=== PATIENT | male | born 1940 | race Caucasian/White ===

== ENCOUNTER 2018-05-12 12:14 | Inpatient (IN) ==
[2018-05-12] MEDS ORDERED: MOM Conc 10 ML UD.LIQ PO PRN (18:10)
[2018-05-12] MEDS: ARIPiprazole 5 MG TABLET PO SCH (21:10)
[2018-05-12] MEDS: Lithium Carbonate 300 MG CAPSULE PO SCH (21:10)
[2018-05-12] MEDS: Venlafaxine XR (24 HR) 75 MG CAP.ER.24H PO SCH (21:10)
--- NOTE | 2018-05-12 22:28 | Internal Med History&Physical ---
Date of Encounter: 05/12/18 Time of Encounter: 21:00 Internal Medicine - H&P: HPI Chief complaint: DIZZY SPELLS; POSSIBLE SYMPTOMATIC BRADYCARDIA Admitted From: Home Plans for Post Hospital Care: Home History of present illness: Mr. Shin is a 77 year old male. This patient was transferred to our hospital from [place] emergency department. He has experienced 3 episodes of dizziness/lightheadedness for the last 2 weeks. The last one happened yesterday; the previous one happened on the day before yesterday. It was a feeling of "like about to pass out". They were not associated with any chest pain, difficulty breathing or diaphoresis. He has never been diagnosed with coronary artery disease. He was found to have heart rate that low 50s in [place]; associated with some hypotension. He has been treated for type 2 diabetes mellitus and hypertension. He had his aortic valve replaced with bioprosthetic valve in 2009. His last echocardiogram done a few months ago showed some deterioration of the bioprosthetic valve. He has not noticed any worsening of her exercise tolerance or exertional chest pain recently. Review of systems: All 14 organ systems were reviewed by me with the patient. Positive and pertinent negative findings are listed above. The rest of organ systems is negative. Past Med Surg Social Fam HX - Past Medical History Medical history: diabetes, GERD, hyperlipidemia, hypertension, valvular heart disease, other Additional medical history: History of sleep apnea and uses CPAP machine Psychiatric history: bipolar, depression - Past Surgical History Surgical History: appendectomy, heart valve replacement - Social History Smoking Status: Never smoker Smokeless Tobacco Status: No Alcohol use: none Drug use: none - Family History Father History Unknown: Yes Adopted: No Living Status: Age at : 62 Cause of : Brain Hx Family GI Disorders: Yes Hx Family Neurologic Disorders: Yes Mother Living Status: Hx Family Cancer: Yes (Cancer, unknown type) Internal Medicine - H&P: Meds Aspirin 81 mg PO DAILY 02/22/16 [History] Folic Acid 1 mg PO DAILY 02/22/16 [History] Primidone [Mysoline] 50 mg PO BIDWM 02/22/16 [History] Venlafaxine XR (24 HR) [Effexor Xr] 75 mg PO BID 02/22/16 [History] Aripiprazole [Abilify] 12.5 mg PO HS 05/11/18 [History] Atorvastatin Calcium [Lipitor] 20 mg PO DAILY 05/11/18 [History] Cholecalciferol (Vitamin D3) [Vitamin D3] 2,000 units PO DAILY 05/11/18 [History ] Empagliflozin [Jardiance] 10 mg PO DAILY 05/11/18 [History] Furosemide [Lasix] 10 mg PO DAILY 05/11/18 [History] GlipiZIDE [Glipizide ER] 20 mg PO DAILY 05/11/18 [History] [place] Carbonate 300 mg PO BID 05/11/18 [History] Pantoprazole Sodium [Protonix] 40 mg PO DAILY 05/11/18 [History] Tamsulosin HCl [Flomax] 0.4 mg PO DAILY 05/11/18 [History] MOM Conc [MILK OF MAGNESIA conc] 30 ml PO DAILY PRN [email or web address] 05/12/18 [Rx] 3 Allergy/AdvReac Type Severity Reaction Status Date / Time No Known Allergies Allergy Verified 05/12/18 18:23 All Systems PM: A 10-system review of systems was performed and is negative for pertinent findings except as documented above in the HPI. - Constitutional Vitals: Temp Pulse Resp BP Pulse Ox 97.8 F 50 16 110/62 97 05/12/18 18:32 05/12/18 18:32 05/12/18 18:32 05/12/18 18:32 05/12/18 18:32 - Other Additional findings: Skin: Free of rash and discoloration. Eyes: Sclera is white. There is no discharge from eyes. ENMT: Oral/pharyngeal mucosa is normal in appearance. There is no discharge from nose or ears. Respiratory: Normal breath sounds with no crackles and wheezes bilaterally. CV: Heart is regular with no gallop or murmur. His heart rate is 46/min. GI: Abdomen is flat and soft with no palpable mass or visceromegaly. : There is no tenderness in patient's flanks bilaterally. There is mild tenderness in suprapubic area. His post voiding residual is about 500 cc. Neuro exam: He has good strength in upper and lower extremities. He has normal eye movements. Psychiatric: He has normal affect. His thought process is appropriate to the situation. - Assessment and plan (1) Bradycardia Current Visit: No Status: Acute Assessment and plan: His heart monitor is showing sinus bradycardia of 46/min. Will consult cardiology. The patient may have symptomatic bradycardia. I cannot see any medications, which can contribute to his slow heart rate. (2) Hypotension (arterial) Current Visit: No Status: Acute Assessment and plan: His blood pressure checked in our hospital on 3 occasions looks pretty decent. We will be watching it closely. We will keep his Lasix on hold. Qualifiers: Hypotension type: unspecified hypotension type Qualified Code(s): I95.9 - Hypotension, unspecified (3) Type 2 diabetes mellitus Current Visit: Yes Status: Acute Assessment and plan: It seems to be under control. Will offer him fingersticks for glucose 4 times a day; without insulin coverage. We will continue his previously used hypoglycemics. 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
[2018-05-13] MEDS: Aspirin 81 MG TAB.CHEW PO SCH (08:01)
[2018-05-13] MEDS: Venlafaxine XR (24 HR) 75 MG CAP.ER.24H PO SCH ×2 (08:01→21:31)
[2018-05-13] MEDS: Folic Acid 1 MG TABLET PO SCH (08:01)
[2018-05-13] MEDS: Cholecalciferol (D-3) 1,000 UNIT TABLET PO SCH (08:01)
[2018-05-13] MEDS: Lithium Carbonate 300 MG CAPSULE PO SCH ×2 (08:02→21:31)
[2018-05-13] MEDS: Furosemide 20 MG TABLET PO SCH (08:02)
[2018-05-13] MEDS: Primidone 50 MG TABLET PO SCH ×2 (08:02→16:49)
[2018-05-13] MEDS ORDERED: PATIENT TAKING PO SCH (09:00)
[2018-05-13] MEDS ORDERED: *HR* GlipiZIDE XL (24 HR) 10 MG TABLET PO SCH (09:00)
--- NOTE | 2018-05-13 09:45 | Cardiology Consult Note ---
Date of Encounter: 05/13/18 Time of Encounter: 08:30 Assessment and Plan (1) Bradycardia Current Visit: No Status: Acute Per cardiology: -SB noted per ECG. -Telemetry reviewed with average HR previous 12 hours noted to be 52, SB. PACs and blocked PACs noted. -Denies dizziness, lightheadedness, syncope, or near syncope. -Of note, does report increased shortness of breath with exertion. -Will check echocardiogram. -Will have RN walk in hallway with pulse ox to see if HR increases with exertion. -Can consider standard stress to evaluate for chronotropic incompetence. -Will continue to monitor. (2) Elevated troponin Current Visit: No Status: Acute Per cardiology: -Troponins 0.05x3. -Denies chest pain. -ECG with SB, HR 57, RBBB, non-specific ST and T wave abnormalities noted, no previous ECGs to review for comparison. -On asa, statin, Not on BB due to hypotension. -Of note, platelets 41. -Of note, reports LHC prior to valve replacement, does not remember being told about any significant blockages. Denies previous PCI. -Will check echocardiogram. -Not a candidate for invasive cardiac intervention due to thrombocytopenia. (3) Thrombocytopenia Current Visit: No Status: Chronic Per cardiology: -Known thrombocytopenia. -Platelets yesterday 41. -12/2017 platelets 69. -Of note, also hemoglobin 11.8 -Management per primary service. (4) History of aortic valve replacement with bioprosthetic valve Current Visit: No Status: Chronic Per cardiology: -Known AV replacement with bioprosthetic AV 2009. -Reports worsening shortness of breath with exertion. -Systolic murmur noted. -Last TTE 2016 ARM with LVEF 55%, mild diastolic dysfunction, mild concentric LVH, dilated RV with normal function, bioprosthetic AV not well visualized. Doppler gradiant 20mmHg may be normal for type of valve, mild MR, no segmental wall motion abnormalities noted. -Will check echocardiogram. Discussion w patient/family: The assessment and plan as outlined above was discussed with the patient who expressed understanding and agreement. All questions were answered. Thank you for involving us in the care of your patient. Please call with any questions. Discussed and reviewed with . History of Present Illness Consult date: 05/12/18 Requesting physician: Lenny Up Consult reason: bradycardia Chief complaint: shortness of breath History of present illness: Mr. Shin is a 77 year old male with a relevant past medical history of bioprosthetic AV replacement 2009, DM, HTN, tremors, sleep apnea, depression, tardive dyskinesia who presented to [facility] with complaints of shortness of breath with exertion for the past 2-3 weeks. Patient denies chest pain. Denies increased fatigue. Patient denies dizziness, lightheadedness, syncope, or near syncope. Patient denies increased edema. Past Med Surg Social Fam HX - Past Medical History Attestation: Yes The following information was validated with the patient. Source: patient, old records reviewed Medical history: diabetes, GERD, hyperlipidemia, hypertension, valvular heart disease, other Additional medical history: History of sleep apnea and uses CPAP machine Psychiatric history: bipolar, depression - Past Surgical History Surgical History: appendectomy, heart valve replacement - Social History Smoking Status: Never smoker Smokeless Tobacco Status: No Alcohol use: none Drug use: none - Family History Father History Unknown: Yes Adopted: No Living Status: Age at : 62 Cause of : Brain Hx Family GI Disorders: Yes Hx Family Neurologic Disorders: Yes Mother Living Status: Hx Family Cancer: Yes (Cancer, unknown type) Medications and Allergies Aspirin 81 mg PO DAILY 02/22/16 [History] Folic Acid 1 mg PO DAILY 02/22/16 [History] Primidone [Mysoline] 50 mg PO BIDWM 02/22/16 [History] Venlafaxine XR (24 HR) [Effexor Xr] 75 mg PO BID 02/22/16 [History] Aripiprazole [Abilify] 12.5 mg PO HS 05/11/18 [History] Atorvastatin Calcium [Lipitor] 20 mg PO DAILY 05/11/18 [History] Cholecalciferol (Vitamin D3) [Vitamin D3] 2,000 units PO DAILY 05/11/18 [History ] Empagliflozin [Jardiance] 10 mg PO DAILY 05/11/18 [History] Furosemide [Lasix] 10 mg PO DAILY 05/11/18 [History] GlipiZIDE [Glipizide ER] 20 mg PO DAILY 05/11/18 [History] [place] Carbonate 300 mg PO BID 05/11/18 [History] Pantoprazole Sodium [Protonix] 40 mg PO DAILY 05/11/18 [History] Tamsulosin HCl [Flomax] 0.4 mg PO DAILY 05/11/18 [History] MOM Conc [MILK OF MAGNESIA conc] 30 ml PO DAILY PRN [email or web address] 05/12/18 [Rx] 3 Allergy/AdvReac Type Severity Reaction Status Date / Time No Known Allergies Allergy Verified 05/12/18 18:23 All Systems Review: The remainder of the systems were reviewed and are negative - Cardiovascular Cardiovascular: as per HPI, dyspnea on exertion Physical Examination Vital Signs, Last 4 Hours Temp Pulse Resp BP Pulse Ox 05/13/18 07:03 97.9 F 61 16 106/60 95 General: Conversant, No Apparent Distress HEENT: Atraumatic, Normocephaly, Mucus Membranes Moist Neck: No JVD, Normal carotid pulses Cardiac: Reg Rate and Rhythm, Normal S1 and S2, Other (Systolic murmur noted. ) Lungs: Normal Breath Sounds, No Wheeze, Rales, Rhonchi Neuro: Alert and responsive, No focal deficits noted Abdomen: Soft, Non-Tender Skin: No rashes noted on visualized skin Musculoskeletal: No Chest Wall Tenderness Extremities: No Clubbing, No Cyanosis, No Edema, Normal Pulses Results Active Medications Aripiprazole (Abilify) 12.5 mg PO HS [facility] Stop: 11/11/18 21:01 Last Admin: 05/12/18 21:10 Dose: 12.5 mg Aspirin (Aspirin) 81 mg PO DAILY ZEE Stop: 11/12/18 09:01 Last Admin: 05/13/18 08:01 Dose: 81 mg Atorvastatin Calcium (Lipitor) 20 mg PO DAILY ZEE Stop: 11/12/18 09:01 Last Admin: 05/13/18 08:01 Dose: 20 mg Folic Acid (Folic Acid) 1 mg PO DAILY ZEE Stop: 11/12/18 09:01 Last Admin: 05/13/18 08:01 Dose: 1 mg Furosemide (Lasix) 10 mg PO DAILY ZEE Stop: 11/12/18 09:01 Last Admin: 05/13/18 08:02 Dose: 10 mg Glipizide (Glucotrol Xl) 20 mg PO DAILY ZEE Stop: 11/12/18 09:01 Last Admin: 05/13/18 08:08 Dose: 20 mg [place] Carbonate ([place] Carbonate) 300 mg PO BID ZEE PRN Reason: Protocol Stop: 11/11/18 21:01 Last Admin: 05/13/18 08:02 Dose: 300 mg Magnesium Hydroxide (Milk Of Magnesia Conc) 30 ml PO DAILY PRN PRN Reason: Constipation Stop: 11/11/18 18:11 Omeprazole (Prilosec) 20 mg PO DAILY ZEE Stop: 11/12/18 09:01 Last Admin: 05/13/18 08:02 Dose: 20 mg Pharmacy Profile Note (Patient Taking Own Medication) 10 each PO DAILY ZEE Stop: 11/12/18 09:01 Last Admin: 05/13/18 08:04 Dose: Not Given Primidone (Mysoline) 50 mg PO BIDWM ZEE Stop: 11/12/18 08:01 Last Admin: 05/13/18 08:02 Dose: 50 mg Tamsulosin HCl (Flomax) 0.4 mg PO DAILY ZEE PRN Reason: Protocol Stop: 11/12/18 09:01 Last Admin: 05/13/18 08:01 Dose: 0.4 mg Venlafaxine HCl (Effexor Xr) 75 mg PO BID ZEE PRN Reason: Protocol Stop: 11/11/18 21:01 Last Admin: 05/13/18 08:01 Dose: 75 mg Vitamin D (Vitamin D) 2,000 unit PO DAILY ZEE Stop: 11/12/18 09:01 Last Admin: 05/13/18 08:01 Dose: 2,000 unit Laboratory Tests 12/29/17 12/29/17 01/02/18 07:15 07:15 08:15 Hgb Plt Count 67 L 69 L Potassium Creatinine Troponin I B-Natriuretic Peptide TSH 1.614 05/11/18 05/11/18 05/11/18 15:20 17:30 17:30 Hgb Plt Count 50 L Potassium Creatinine Troponin I 0.05 H* B-Natriuretic Peptide 169 H TSH 05/11/18 05/12/18 05/12/18 21:15 02:50 02:50 Hgb 11.8 L Plt Count 41 L Potassium Creatinine Troponin I 0.05 H* 0.05 H* B-Natriuretic Peptide TSH 05/12/18 02:50 Hgb Plt Count Potassium 3.8 Creatinine 0.93 Troponin I B-Natriuretic Peptide TSH - Imaging and Cardiology Chest Xray: report reviewed Echo: pending, report reviewed - EKG Interpretation EKG results cardiology: personally reviewed (ECG with SB, HR 57, RBBB, non- specific ST and T wave abnormalities noted.) Consult Discharge Plan - Plan Referrals: Drake Barba MD [Primary Care Provider] -
[2018-05-13] MEDS ORDERED: D5% in Water 1,000 ML IVC PRN (12:39)
[2018-05-13] MEDS ORDERED: *HR* Dextrose 50 % in Water (Syg) 50 ML SYRINGE IVP PRN (12:39)
[2018-05-13] MEDS ORDERED: Dextrose Gel 15 GM/37.5 ML TUBE PO PRN ×2 (12:39)
[2018-05-13] MEDS: Insulin LISPRO 300 UNITS/3 ML VIAL SQ SCH (17:05)
--- NOTE | 2018-05-13 18:44 | Internal Med Progress Note ---
Hospitalist Progress Note - Encounter Date of Encounter: 05/13/18 Time of Encounter: 11:00 - Subjective Interval History: Patient was seen and examined at bedside. Currently he is chest pain free and denies any shortness of breath. Ambulated in the hallway per nursing staff tolerated well with no chest pain or shortness of breath. - Exam Vitals: Temp Pulse Resp BP Pulse Ox 98.4 F 62 14 133/69 96 05/13/18 18:34 05/13/18 18:34 05/13/18 18:34 05/13/18 18:34 05/13/18 18:34 Exam: Skin: Free of rash and discoloration. Eyes: Sclera is white. There is no discharge from eyes. ENMT: Oral/pharyngeal mucosa is normal in appearance. There is no discharge from nose or ears. Respiratory: Normal breath sounds with no crackles and wheezes bilaterally. CV: Heart is regular with no gallop systolic murmur noted. Regular rate and rhythm GI: Abdomen is flat and soft with no palpable mass or visceromegaly. : There is no tenderness in patient's flanks bilaterally. Neuro exam: He has good strength in upper and lower extremities. He has normal eye movements. Psychiatric: He has normal affect. His thought process is appropriate to the situation. - Assessment and Plan (1) Bradycardia Current Visit: No Status: Acute Assessment and Plan: Sinus bradycardia on EKG no chest pain syncope dizziness or lightheadedness. Echocardiogram ordered Cardiology consulted appreciate recommendations Continuous cardiac monitoring Fall precautions (2) Type 2 diabetes mellitus Current Visit: Yes Status: Acute Assessment and Plan: Accu-Cheks before meals at bedtime with sliding scale insulin Hold oral medications for now (3) Elevated troponin Current Visit: No Status: Acute Assessment and Plan: Troponin 0.053 no chest pain EKG shows sinus bradycardia no ST-T wave abnormalities On aspirin and statin Echocardiogram ordered Cardiology consulted (4) History of aortic valve replacement with bioprosthetic valve Current Visit: No Status: Chronic Assessment and Plan: History AV replacement with bioprosthetic AV 2009-has been experiencing increasing shortness of breath with exertion Systolic murmur noted Echo has been ordered Cardiology consulted appreciate recommendations (5) Thrombocytopenia Current Visit: No Status: Chronic Assessment and Plan: This appears to be chronic we will continue to monitor Monitor for any bleeding DVT Prophylaxis: SCDs due to thrombocytopenia - Time Spent with Patient Total time spent is greater than 50% in coordination of care (as documented) at patient's floor/unit and/or counseling patient: Internal Medicine: Result - Impressions Impressions Echocardiogram 05/13/18 08:26 Impressions: LVEF 60%. Moderate concentric left ventricular hypertrophy. Mild left ventricular diastolic dysfunction. Normal right ventricular structure and function. Bi-atrial enlargement. Mild mitral regurgitation. Prosthetic aortic valve not well visualized. Increased Doppler gradients suggest the presence of abnormal valvular function (PV 3.8m/s, MG 29 mmHg, DVI 0.33, AT >100 ms). Mild central aortic regurgitation. Unable to estimate RVSP due to suboptimal TR signal. Left Ventricular Wall Motion: Rest Echo Findings All wall segments showed normal motion. Findings: Study Quality * Technically adequate exam. ECG Findings * Sinus rhythm with BBB. Left Ventricle * LVEF 60%. * Moderate concentric left ventricular hypertrophy. * Mild left ventricular diastolic dysfunction. Right Ventricle * Normal right ventricular structure and function. Left Atrium * Severely dilated left atrium. Right Atrium * Mildly dilated right atrium. Mitral Valve * Normal mitral valve structure. * No mitral stenosis. * Mild mitral regurgitation. Aortic Valve * Prosthetic aortic valve not well visualized. * Mild central aortic regurgitation. * Increased Doppler gradients. Tricuspid Valve * Tricuspid valve not well visualized. * Trace tricuspid regurgitation. Pulmonic Valve * Pulmonic valve is not well visualized. * No pulmonic stenosis. * Trace pulmonic regurgitation. Pulmonary Artery * Pulmonary artery not well visualized. Aorta * Not well visualized. Pericardium * There is no pericardial effusion present. Interatrial Septum * No evidence of PFO by color Doppler. IVC * The IVC is not dilated. Consult Discharge Plan - Plan Referrals: Drake Barba MD [Primary Care Provider] - 05/18/18 3:00 pm (2) Type 2 diabetes mellitus Qualifiers: Diabetes mellitus fpc insulin use: without radar mechanic use Diabetes mellitus complication status: without complication Qualified Code(s): E11.9 - Type 2 diabetes mellitus without complications
[2018-05-13] MEDS ORDERED: Insulin LISPRO 300 UNITS/3 ML VIAL SQ SCH (21:00)
[2018-05-13] MEDS: ARIPiprazole 5 MG TABLET PO SCH (21:31)
[2018-05-14 06:31] LABS: Basophils % 0.3 %; Eosinophils # 0.2 K/mcL (0.0-0.6); Eosinophils % 2.6 %; Hematocrit 35.3 % (37.5-50.1); Hemoglobin 11.9 g/dL (12.9-16.9); Immature Granulocytes % 0.2 % (0-4); Lymphocytes # 2.3 K/mcL (0.6-4.6); Lymphocytes % 39.7 %; Mean Corpuscular HGB Conc 33.7 g/dL (31.6-35.5); Mean Corpuscular Hemoglobin 32.7 pg (28.0-33.3); Mean Platelet Volume 12.2 fL (9.4-12.4); Monocytes # 0.4 K/mcL (0.0-1.3); Neutrophils # 2.9 K/mcL (1.6-8.9); Red Blood Count 3.64 M/mcL (4.19-5.50); Red Cell Distribution Width 13.3 % (11.5-14.5); Segmented Neutrophils % 50.2 %
[2018-05-14 06:32] LABS: Platelet Count 45 K/mcL (140-400)
[2018-05-14 06:52] LABS: Blood Urea Nitrogen 14 mg/dL (8-23); Carbon Dioxide 25 mEq/L (23-29); Chloride 104 mEq/L (98-107); Potassium 3.6 mEq/L (3.5-5.1); Sodium 135 mEq/L (136-145)
[2018-05-14 06:53] LABS: BUN/Creatinine Ratio 18 (6-26); Glucose 164 mg/dL (70-105); Osmolality,Calculated 284 (280-300); eGFR For Non-African Americans > 60 (> 60)
[2018-05-14] MEDS: Venlafaxine XR (24 HR) 75 MG CAP.ER.24H PO SCH (08:45)
[2018-05-14] MEDS: Folic Acid 1 MG TABLET PO SCH (08:45)
[2018-05-14] MEDS: Furosemide 20 MG TABLET PO SCH (08:45)
[2018-05-14] MEDS: Cholecalciferol (D-3) 1,000 UNIT TABLET PO SCH (08:45)
[2018-05-14] MEDS: Lithium Carbonate 300 MG CAPSULE PO SCH (08:45)
[2018-05-14] MEDS: Primidone 50 MG TABLET PO SCH (08:45)
[2018-05-14] MEDS: Aspirin 81 MG TAB.CHEW PO SCH (08:45)
[2018-05-14] MEDS: Insulin LISPRO 300 UNITS/3 ML VIAL SQ SCH ×2 (08:48→12:25)
--- NOTE | 2018-05-14 10:23 | Cardiology Progress Note ---
Date of Encounter: 05/14/18 Time of Encounter: 08:30 Assessment and Plan (1) Bradycardia Current Visit: No Status: Acute Per cardiology: -SB noted per ECG. -Telemetry reviewed with average HR previous 12 hours noted to be 54, SB. PACs and PVCs noted. -Denies dizziness, lightheadedness, syncope, or near syncope. -Of note, reported increased shortness of breath with exertion. -Was walked yesterday with RN and HR increased to 70-80s with walking. Denies shortness of breath with working. -HR stable. Asymptomatic. Avoid AV jany blockers. -Cardiology will sign off and will follow in outpatient setting. Follow up set. (2) Elevated troponin Current Visit: No Status: Acute Per cardiology: -Troponins 0.05x3. -Denies chest pain. -ECG with SB, HR 57, RBBB, non-specific ST and T wave abnormalities noted, no previous ECGs to review for comparison. -On asa, statin, Not on BB due to bradycardia. -Of note, platelets 41. -Of note, reports LHC prior to valve replacement, does not remember being told about any significant blockages. Denies previous PCI. -TTE with LVEF preserved, no segmental wall motion abnormalities noted. -Not a candidate for invasive cardiac intervention due to thrombocytopenia. Cardiac rehab consult not appropriate. (3) Thrombocytopenia Current Visit: No Status: Chronic Per cardiology: -Known thrombocytopenia. -Platelets yesterday 41. -12/2017 platelets 69. -Of note, also hemoglobin 11.8 -Management per primary service. (4) History of aortic valve replacement with bioprosthetic valve Current Visit: No Status: Chronic Per cardiology: -Known AV replacement with bioprosthetic AV 2009. -Reports worsening shortness of breath with exertion. -Systolic murmur noted. -Last TTE 2016 ARM with LVEF 55%, mild diastolic dysfunction, mild concentric LVH, dilated RV with normal function, bioprosthetic AV not well visualized. Doppler gradiant 20mmHg may be normal for type of valve, mild MR, no segmental wall motion abnormalities noted. -TTE this admission with LVEF 60%, moderate concentric LVH, mild diastolic dysfunction, bi-atrial enlargement, mild MR, bioprosthetic AV not well visualized- abnormal valve function noted, mild AR, no segmental wall motion abnormalities noted. -Discussed and reviewed with and , will continue to monitor valve function in outpatient setting. FOllow up set. Discussion w patient/family: The assessment and plan as outlined above was discussed with the patient who expressed understanding and agreement. All questions were answered. Thank you for involving us in the care of your patient. Please call with any questions. Discussed and reviewed with Dr.John Lund Subjective Principal diagnosis: shortness of breath Interval history: Patient reports he is feeling well today. Denies chest pain. Denies shortness of breath today. Denies dizziness, lightheadedness. Objective Vital Signs, Last 4 Hours Temp Pulse Resp BP Pulse Ox 05/14/18 07:04 98 F 50 18 121/71 97 General: Conversant, No Apparent Distress HEENT: Atraumatic, Normocephaly, Mucus Membranes Moist Neck: No JVD, Normal carotid pulses Cardiac: Reg Rate and Rhythm, Normal S1 and S2, Other (Systolic murmur noted. ) Lungs: Normal Breath Sounds, No Wheeze, Rales, Rhonchi Neuro: Alert and responsive, No focal deficits noted Abdomen: Soft, Non-Tender Skin: No rashes noted on visualized skin Musculoskeletal: No Chest Wall Tenderness Extremities: No Clubbing, No Cyanosis, No Edema, Normal Pulses Results 05/14/18 05:24 05/14/18 05:24 Lab Results Impressions Echocardiogram 05/13/18 08:26 Impressions: LVEF 60%. Moderate concentric left ventricular hypertrophy. Mild left ventricular diastolic dysfunction. Normal right ventricular structure and function. Bi-atrial enlargement. Mild mitral regurgitation. Prosthetic aortic valve not well visualized. Increased Doppler gradients suggest the presence of abnormal valvular function (PV 3.8m/s, MG 29 mmHg, DVI 0.33, AT >100 ms). Mild central aortic regurgitation. Unable to estimate RVSP due to suboptimal TR signal. Left Ventricular Wall Motion: Rest Echo Findings All wall segments showed normal motion. Findings: Study Quality * Technically adequate exam. ECG Findings * Sinus rhythm with BBB. Left Ventricle * LVEF 60%. * Moderate concentric left ventricular hypertrophy. * Mild left ventricular diastolic dysfunction. Right Ventricle * Normal right ventricular structure and function. Left Atrium * Severely dilated left atrium. Right Atrium * Mildly dilated right atrium. Mitral Valve * Normal mitral valve structure. * No mitral stenosis. * Mild mitral regurgitation. Aortic Valve * Prosthetic aortic valve not well visualized. * Mild central aortic regurgitation. * Increased Doppler gradients. Tricuspid Valve * Tricuspid valve not well visualized. * Trace tricuspid regurgitation. Pulmonic Valve * Pulmonic valve is not well visualized. * No pulmonic stenosis. * Trace pulmonic regurgitation. Pulmonary Artery * Pulmonary artery not well visualized. Aorta * Not well visualized. Pericardium * There is no pericardial effusion present. Interatrial Septum * No evidence of PFO by color Doppler. IVC * The IVC is not dilated. Active Medications Aripiprazole (Abilify) 12.5 mg PO HS [facility] Stop: 11/11/18 21:01 Last Admin: 05/13/18 21:31 Dose: 12.5 mg Aspirin (Aspirin) 81 mg PO DAILY [facility] Stop: 11/12/18 09:01 Last Admin: 05/14/18 08:45 Dose: 81 mg Atorvastatin Calcium (Lipitor) 20 mg PO DAILY [facility] Stop: 11/12/18 09:01 Last Admin: 05/14/18 08:45 Dose: 20 mg Dextrose/Water (Dextrose 50% (Syg)) 25 ml IVP AD PRN PRN Reason: Hypoglycemia Stop: 11/12/18 12:40 Folic Acid (Folic Acid) 1 mg PO DAILY [facility] Stop: 11/12/18 09:01 Last Admin: 05/14/18 08:45 Dose: 1 mg Furosemide (Lasix) 10 mg PO DAILY [facility] Stop: 11/12/18 09:01 Last Admin: 05/14/18 08:45 Dose: 10 mg Glucagon (Glucagen) 1 mg IM ONCE PRN PRN Reason: Hypoglycemia Stop: 11/12/18 12:40 Glucose (Gluctose) 15 gm PO ONCE PRN PRN Reason: Hypoglycemia Stop: 11/12/18 12:40 Glucose (Gluctose) 30 gm PO ONCE PRN PRN Reason: Hypoglycemia Stop: 11/12/18 12:40 Dextrose (Dextrose 5%) 1,000 mls @ 100 mls/hr IVC .Q10H PRN PRN Reason: HYPOGLYCEMIA Stop: 11/12/18 12:40 Insulin Human Lispro (Humalog) 0 units SQ HS [facility] PRN Reason: Protocol Stop: 11/12/18 21:01 Last Admin: 05/13/18 21:31 Dose: 2 unit Insulin Human Lispro (Humalog) 0 units SQ TIDAC [facility] PRN Reason: Protocol Stop: 11/12/18 16:31 Last Admin: 05/14/18 08:48 Dose: 2 unit [place] Carbonate ([place] Carbonate) 300 mg PO BID [facility] PRN Reason: Protocol Stop: 11/11/18 21:01 Last Admin: 05/14/18 08:45 Dose: 300 mg Magnesium Hydroxide (Milk Of Magnesia Conc) 30 ml PO DAILY PRN PRN Reason: Constipation Stop: 11/11/18 18:11 Omeprazole (Prilosec) 20 mg PO DAILY [facility] Stop: 11/12/18 09:01 Last Admin: 05/14/18 08:45 Dose: 20 mg Primidone (Mysoline) 50 mg PO BIDWM [facility] Stop: 11/12/18 08:01 Last Admin: 05/14/18 08:45 Dose: 50 mg Tamsulosin HCl (Flomax) 0.4 mg PO DAILY [facility] PRN Reason: Protocol Stop: 11/12/18 09:01 Last Admin: 05/14/18 08:45 Dose: 0.4 mg Venlafaxine HCl (Effexor Xr) 75 mg PO BID [facility] PRN Reason: Protocol Stop: 11/11/18 21:01 Last Admin: 05/14/18 08:45 Dose: 75 mg Vitamin D (Vitamin D) 2,000 unit PO DAILY [facility] Stop: 11/12/18 09:01 Last Admin: 05/14/18 08:45 Dose: 2,000 unit Laboratory Tests 05/14/18 05/14/18 05:24 05:24 Hgb 11.9 L Plt Count 45 L Creatinine 0.80 - Imaging and Cardiology Chest Xray: report reviewed Echo: report reviewed - EKG Interpretation EKG results cardiology: other (Telemetry reviewed with average HR previous 12 hours noted to be 54, SB. PVCs and PACs noted.) - VTE Documentation of Mechanical Device: Intermittent pneumatic compression device Consult Discharge Plan - Plan Referrals: Drake Barba MD [Primary Care Provider] - 05/18/18 3:00 pm
[2018-05-14 11:40] VITALS: BP 94/50
--- NOTE | 2018-05-14 14:08 | Discharge Summary ---
- NOTES TO OUTPATIENT PROVIDER Notes to Outpatient Provider: Patient presented with bradycardia seen by cardiology will follow-up as outpatient-continue to monitor bowel function and outpatient setting. Has history of chronic thrombocytopenia patient will follow -up with Kelsey ruiz Date of Encounter: 05/14/18 Time of Encounter: 14:02 - Discharge Diagnosis (1) Bradycardia Priority: Primary Status: Acute (2) Type 2 diabetes mellitus Priority: Secondary Status: Acute Qualifiers: Diabetes mellitus termite control service representative insulin use: without termite control service representative use Diabetes mellitus complication status: without complication Qualified Code(s): E11.9 - Type 2 diabetes mellitus without complications (3) Elevated troponin Priority: Secondary Status: Acute (4) History of aortic valve replacement with bioprosthetic valve Priority: Secondary Status: Chronic (5) Thrombocytopenia Priority: Secondary Status: Chronic Hospital course: Mr. Shin is a 77 year old male past medical history of bioprosthetic AV replacement 2010 diabetes hypertension tremors sleep apnea tardive dyskinesia originally presented to [facility] ER with complaints of shortness of breath on exertion for the past 2-3 weeks. He denies any chest pain or fatigue dizziness or lightheadedness syncope or near syncope. He was noted to have a decreased heart rate in the 40s sinus. He is not on any beta blockers at this time. Seen by cardiology he is asymptomatic bradycardia advising to avoid jany blockers. Echo was completed with EF of 60% moderate concentric LVH mild diastolic dysfunction biatrial enlargement mild MR 5% AV not well visualized abnormal bowel function noted mild AR no segmental wall motion abnormalities noted. Cardiology recommending monitoring AV valve in outpatient settings. Also advising to avoid AV jany blockers. Patient did have some thrombocytopenia as well as hemoglobin was 11.8. Patient states that this is chronic and that he follows with Dr Christ ruiz in [place] however has not seen in 1 1/2 year and he has not been established with a new hematology. We will set up appointment with hematology as outpatient. We will have patient follow-up with primary care provider and monitor CBC as outpatient. Patient verbalized understanding of follow-up directions. He is hemodynamically stable at this time and is ready for discharge. - Time Spent with Patient Total time spent providing and/or coordinating discharge services: - Discharge Medications Home Medications: Aspirin 81 mg PO DAILY 02/22/16 [History] Folic Acid 1 mg PO DAILY 02/22/16 [History] Primidone [Mysoline] 50 mg PO BIDWM 02/22/16 [History] Venlafaxine XR (24 HR) [Effexor Xr] 75 mg PO BID 02/22/16 [History] Aripiprazole [Abilify] 12.5 mg PO HS 05/11/18 [History] Atorvastatin Calcium [Lipitor] 20 mg PO DAILY 05/11/18 [History] Cholecalciferol (Vitamin D3) [Vitamin D3] 2,000 units PO DAILY 05/11/18 [History ] Empagliflozin [Jardiance] 10 mg PO DAILY 05/11/18 [History] Furosemide [Lasix] 10 mg PO DAILY 05/11/18 [History] GlipiZIDE [Glipizide ER] 20 mg PO DAILY 05/11/18 [History] [place] Carbonate 300 mg PO BID 05/11/18 [History] Pantoprazole Sodium [Protonix] 40 mg PO DAILY 05/11/18 [History] Tamsulosin HCl [Flomax] 0.4 mg PO DAILY 05/11/18 [History] MOM Conc [MILK OF MAGNESIA conc] 30 ml PO DAILY PRN ud.[id number] 05/12/18 [Rx] Allergies/Adverse Reactions: 3 Allergy/AdvReac Type Severity Reaction Status Date / Time No Known Allergies Allergy Verified 05/12/18 18:23 Date of admission: 05/13/18 20:27 Primary care physician: Drake Barba MD Consults: 05/12/18 16:58 Consult to Cardiology [CONS] Routine Comment: Consulting Provider: Cardiology [place] Reason for Consult: SPELLS OF DIZZINESS, LIKELY DUE TO SIGNIFICANT SINUS BRADYCARDIA Time Notified: 16:50 Call Completed: Yes Discharging clinician: Estela Soto Anticipated date of discharge: 05/14/18 - Constitutional Vitals: Temp Pulse Resp BP Pulse Ox 98 F 53 16 94/50 93 05/14/18 11:34 05/14/18 11:34 05/14/18 11:34 05/14/18 11:34 05/14/18 11:34 General appearance: Present: A&O X 3 - Head Head exam: Present: atraumatic, normocephalic - Eye Eye exam: Present: PERRL, conjuntiva pink, sclera anicteric - Neck Neck exam general surgery: Present: supple, trachea midline. Absent: lymphadenopathy - Respiratory Respiratory exam: Present: CTAB. Absent: accessory muscle use, rales, rhonchi, wheezes - Cardiovascular Cardiovascular exam: Present: RRR, +S1, +S2. Absent: diastolic murmur, gallop, rubs, systolic murmur - GI/Abdominal GI/Abdominal exam: Present: normal bowel sounds, soft, no peritoneal signs. Absent: distended, tenderness - Extremities Exam Extremities exam: Present: warm, radial pulses palpable and symmetrical. Absent : calf tenderness, cyanotic, pedal edema - Neurological Exam Neurological exam: Present: CN II-XII intact, oriented X3, no focal deficits. Absent: pronater drift, facial droop, speech deficit - Skin Skin exam: Present: dry, intact - Patient Status Disposition: Home, Self-Care Condition: Good Functional capacity at discharge: independent ambulation Overall status at discharge: patient is back to baseline - Discharge Instructions Follow Up With: Haritha Pham CNP [Partnered Physician] - (Your appointment has been requested. Our offices will call you with a follow up appointment time and date. ) Drake Barba MD [Primary Care Provider] - 05/18/18 3:00 pm - Diet and Activity Activity: increase activity as tolerated Diet: advance to your usual diet - VTE Documentation of Mechanical Device: Intermittent pneumatic compression device
== END 2018-05-14 16:25 | disposition home or self-care (01) | DRG 309 ==
LOC: 3BNU → SUATTDRO 13:46
PROVIDERS: ADMIT Hospitalist; ATTEND Internal Medicine

== ENCOUNTER 2020-09-03 22:32 | Inpatient (IN) ==
[2020-09-04] MEDS ORDERED: Ondansetron ODT 4 MG TAB.RAPDIS SL PRN (01:22)
[2020-09-04] MEDS ORDERED: Acetaminophen 325 MG TABLET PO PRN (01:22)
[2020-09-04] MEDS ORDERED: Naloxone 0.4 MG/ML INJ IVP PRN (01:22)
[2020-09-04] MEDS ORDERED: D5% in Water 1,000 ML IVC PRN (02:49)
[2020-09-04] MEDS ORDERED: *HR* Dextrose 50 % in Water (Vial) 50 ML VIAL IVP PRN (02:49)
[2020-09-04] MEDS ORDERED: Dextrose Gel 15 GM/37.5 ML TUBE PO PRN ×2 (02:49)
[2020-09-04] MEDS: Insulin LISPRO 300 UNITS/3 ML VIAL SQ SCH ×4 (03:14→16:07)
[2020-09-04 08:13] LABS: ABG Base Excess 0 mEq/L (-2 to 3); ABG HCO3 24 mEq/L (21-27); ABG Oxygen Saturation 98 % (95-98); ABG PCO2 35 mmHg (35-45); ABG PH 7.45 pH Units (7.32-7.45); ABG PO2 95 mmHg (85-104); ABG TCO2 25 mEq/L (20-26)
[2020-09-04 08:28] LABS: Hematocrit 41.6 % (37.5-50.1); Hemoglobin 13.3 g/dL (12.9-16.9); Mean Corpuscular Hemoglobin 33.8 pg (28.0-33.3); Mean Corpuscular Volume 105.6 fL (83.0-100.0); Mean Platelet Volume 10.9 fL (9.4-12.4); Platelet Count 133 K/mcL (140-400); Red Blood Count 3.94 M/mcL (4.19-5.50); Red Cell Distribution Width 12.6 % (11.5-14.5); White Blood Count 6.8 K/mcL (4.3-11.1)
[2020-09-04 08:45] LABS: Magnesium 1.9 mg/dL (1.6-2.6)
[2020-09-04 08:48] LABS: Alanine Aminotransferase 26 Units/L (7-52); Albumin 3.4 g/dL (3.5-5.7); Albumin/Globulin Ratio 0.9 (1.1-2.2); Alkaline Phosphatase 50 Units/L (34-104); Aspartate Amino Transferase 14 Units/L (13-39); BUN/Creatinine Ratio 27 (6-26); Bilirubin,Total 0.7 mg/dL (0.3-1.0); Blood Urea Nitrogen 24 mg/dL (8-23); C-Reactive Protein 15 mg/L (Less than 10); Carbon Dioxide 26 mEq/L (23-29); Chloride 109 mEq/L (98-107); Globulin 3.9 g/dL (2.4-3.5); Glucose 215 mg/dL (70-105); Osmolality,Calculated 313 (280-300); Potassium 4.1 mEq/L (3.5-5.1); Sodium 146 mEq/L (136-145); Total Protein 7.3 g/dL (6.4-8.9); eGFR For African Americans > 60 (> 60); eGFR For Non-African Americans > 60 (> 60)
[2020-09-04 08:50] LABS: INR 1.5; Prothrombin Time 17.1 Seconds (9.4-12.1)
[2020-09-04] MEDS ORDERED: Azithromycin 500 MG in 0.9 % Sodium Chloride 250 ML IVPB SCH (09:00)
[2020-09-04 09:06] LABS: Ferritin 282 ng/mL (20-250)
[2020-09-04] MEDS: Dexamethasone 4 MG/ML VIAL IVP SCH (10:01)
[2020-09-04] MEDS ORDERED: Isovue-370 500 ML BOTTLE IVP ONE (10:07)
[2020-09-04] MEDS ORDERED: *HR* Heparin 5,000 UNIT/ML VIAL IVP PRN ×2 (12:47)
[2020-09-04] MEDS ORDERED: *HR* Heparin 5,000 UNIT/ML VIAL IVP ONE (12:47)
[2020-09-04] MEDS ORDERED: Haloperidol Lactate 5 MG/ML VIAL IVP ONE (14:25)
[2020-09-04] MEDS ORDERED: cefTRIAXone 1,000 MG in 0.9 % Sodium Chloride Mini Bag 100 ML IVP SCH (16:00)
[2020-09-04] MEDS: Carbidopa/Levodopa 25/100 TABLET PO SCH ×2 (16:05→20:02)
[2020-09-04 17:09] LABS: INR 1.5; Prothrombin Time 17.1 Seconds (9.4-12.1)
[2020-09-04 17:12] LABS: Heparin anti-factor XA UFH < 0.04 IU/mL (0.30-0.70)
[2020-09-04] MEDS: cefTRIAXone 1,000 MG in Water for inj. (sterile) 10 ML IVP SCH (17:18)
[2020-09-04] MEDS: Doxycycline 100 MG in 0.9 % Sodium Chloride Mini Bag 100 ML IVPB SCH (18:23)
[2020-09-04] MEDS: ARIPiprazole 5 MG TABLET PO SCH (20:01)
[2020-09-04] MEDS: Lithium Carbonate 300 MG CAPSULE PO SCH (20:02)
[2020-09-04] MEDS: Venlafaxine XR (24 HR) 75 MG CAP.ER.24H PO SCH (20:02)
[2020-09-04] MEDS: Heparin 25,000UNIT/250ML 1/2NS 25,000 UNIT/250 ML IV.SOLN IVC SCH (21:35)
[2020-09-05 01:07] LABS: Hematocrit 40.4 % (37.5-50.1); Hemoglobin 12.9 g/dL (12.9-16.9); Mean Corpuscular HGB Conc 31.9 g/dL (31.6-35.5); Mean Corpuscular Hemoglobin 33.9 pg (28.0-33.3); Mean Platelet Volume 11.1 fL (9.4-12.4); Platelet Count 146 K/mcL (140-400); Red Blood Count 3.81 M/mcL (4.19-5.50); Red Cell Distribution Width 12.6 % (11.5-14.5); White Blood Count 8.4 K/mcL (4.3-11.1)
[2020-09-05 01:24] LABS: Alanine Aminotransferase 5 Units/L (7-52); Albumin 3.4 g/dL (3.5-5.7); Albumin/Globulin Ratio 0.9 (1.1-2.2); Alkaline Phosphatase 56 Units/L (34-104); Aspartate Amino Transferase 31 Units/L (13-39); BUN/Creatinine Ratio 28 (6-26); Bilirubin,Total 0.6 mg/dL (0.3-1.0); Blood Urea Nitrogen 26 mg/dL (8-23); Calcium 8.7 mg/dL (8.6-10.3); Carbon Dioxide 26 mEq/L (23-29); Chloride 104 mEq/L (98-107); Globulin 3.8 g/dL (2.4-3.5); Glucose 217 mg/dL (70-105); Osmolality,Calculated 301 (280-300); Potassium 3.9 mEq/L (3.5-5.1); Sodium 140 mEq/L (136-145); Total Protein 7.2 g/dL (6.4-8.9); eGFR For African Americans > 60 (> 60); eGFR For Non-African Americans > 60 (> 60)
[2020-09-05] MEDS: Furosemide 20 MG/2 ML VIAL IVP SCH ×2 (05:57→08:52)
[2020-09-05] MEDS: Cholecalciferol (D-3) 1,000 UNIT (25MCG) TABLET PO SCH (08:32)
[2020-09-05] MEDS: Venlafaxine XR (24 HR) 75 MG CAP.ER.24H PO SCH ×2 (08:32→20:38)
[2020-09-05] MEDS: Carbidopa/Levodopa 25/100 TABLET PO SCH ×3 (08:32→20:38)
[2020-09-05] MEDS: Folic Acid 1 MG TABLET PO SCH (08:32)
[2020-09-05] MEDS: Doxycycline 100 MG in 0.9 % Sodium Chloride Mini Bag 100 ML IVPB SCH ×2 (08:38→17:37)
[2020-09-05] MEDS: Dexamethasone 4 MG/ML VIAL IVP SCH (08:52)
[2020-09-05] MEDS: Insulin LISPRO 300 UNITS/3 ML VIAL SQ SCH ×4 (08:54→20:39)
[2020-09-05] MEDS ORDERED: Aspirin 81 MG TAB.CHEW PO SCH (09:00)
[2020-09-05] MEDS: Heparin 25,000UNIT/250ML 1/2NS 25,000 UNIT/250 ML IV.SOLN IVC SCH (14:12)
[2020-09-05] MEDS ORDERED: 0.9 % Sodium Chloride 250 ML ONE (16:44)
[2020-09-05] MEDS: Pantoprazole 40 MG VIAL IVP SCH (16:49)
[2020-09-05] MEDS: cefTRIAXone 1,000 MG in Water for inj. (sterile) 10 ML IVP SCH (16:50)
[2020-09-05] MEDS: rOPINIRole 0.25 MG TABLET PO SCH (20:38)
[2020-09-05] MEDS: Lithium Carbonate 300 MG CAPSULE PO SCH (20:38)
[2020-09-05] MEDS: ARIPiprazole 5 MG TABLET PO SCH (20:38)
[2020-09-06 00:31] LABS: Hematocrit 36.6 % (37.5-50.1); Hemoglobin 11.9 g/dL (12.9-16.9); Mean Corpuscular HGB Conc 32.5 g/dL (31.6-35.5); Mean Corpuscular Hemoglobin 33.7 pg (28.0-33.3); Mean Corpuscular Volume 103.7 fL (83.0-100.0); Platelet Count 129 K/mcL (140-400); Red Blood Count 3.53 M/mcL (4.19-5.50); Red Cell Distribution Width 12.4 % (11.5-14.5); White Blood Count 6.4 K/mcL (4.3-11.1)
[2020-09-06 00:49] LABS: Alanine Aminotransferase 4 Units/L (7-52); Albumin 3.2 g/dL (3.5-5.7); Albumin/Globulin Ratio 0.9 (1.1-2.2); Alkaline Phosphatase 49 Units/L (34-104); Aspartate Amino Transferase 22 Units/L (13-39); BUN/Creatinine Ratio 30 (6-26); Bilirubin,Total 0.6 mg/dL (0.3-1.0); Blood Urea Nitrogen 25 mg/dL (8-23); Calcium 8.4 mg/dL (8.6-10.3); Carbon Dioxide 26 mEq/L (23-29); Chloride 107 mEq/L (98-107); Globulin 3.4 g/dL (2.4-3.5); Glucose 166 mg/dL (70-105); Osmolality,Calculated 296 (280-300); Potassium 3.9 mEq/L (3.5-5.1); Sodium 139 mEq/L (136-145); Total Protein 6.6 g/dL (6.4-8.9); eGFR For African Americans > 60 (> 60); eGFR For Non-African Americans > 60 (> 60)
[2020-09-06] MEDS: Doxycycline 100 MG in 0.9 % Sodium Chloride Mini Bag 100 ML IVPB SCH (04:54)
[2020-09-06] MEDS: Insulin LISPRO 300 UNITS/3 ML VIAL SQ SCH ×4 (07:48→22:43)
[2020-09-06] MEDS: Heparin 25,000UNIT/250ML 1/2NS 25,000 UNIT/250 ML IV.SOLN IVC SCH (07:49)
[2020-09-06] MEDS ORDERED: *HR* Enoxaparin 100 MG/ML SYRINGE SQ SCH (08:00)
[2020-09-06] MEDS: Furosemide 20 MG/2 ML VIAL IVP SCH (08:07)
[2020-09-06] MEDS: Venlafaxine XR (24 HR) 75 MG CAP.ER.24H PO SCH (08:08)
[2020-09-06] MEDS: Cholecalciferol (D-3) 1,000 UNIT (25MCG) TABLET PO SCH (08:08)
[2020-09-06] MEDS: Pantoprazole 40 MG VIAL IVP SCH (08:08)
[2020-09-06] MEDS: rOPINIRole 0.25 MG TABLET PO SCH ×2 (08:08→22:41)
[2020-09-06] MEDS: Carbidopa/Levodopa 25/100 TABLET PO SCH ×3 (08:09→22:41)
[2020-09-06] MEDS: Folic Acid 1 MG TABLET PO SCH (08:10)
[2020-09-06] MEDS: Dexamethasone 4 MG/ML VIAL IVP SCH (08:10)
[2020-09-06] MEDS ORDERED: *HR* Rivaroxaban 15 MG TABLET PO ONE (17:00)
[2020-09-06 18:27] VITALS: BP 120/71
[2020-09-06] MEDS: Lithium Carbonate 300 MG CAPSULE PO SCH (22:41)
[2020-09-06] MEDS: ARIPiprazole 5 MG TABLET PO SCH (22:42)
[2020-09-07] MEDS ORDERED: Venlafaxine XR (24 HR) 75 MG CAP.ER.24H PO SCH (09:00)
[2020-09-10] MEDS ORDERED: rOPINIRole 0.25 MG TABLET PO SCH (21:00)
== END 2020-09-06 23:10 | DRG 175 ==
LOC: 2NENU → SUATTDRO 09-04 00:50
PROVIDERS: ADMIT Student in an Organized Health Care Education/Training Program; ATTEND Internal Medicine

== ENCOUNTER 2020-09-11 20:38 | Inpatient (IN) ==
[2020-09-12] MEDS ORDERED: Naloxone 0.4 MG/ML INJ IVP PRN (02:10)
[2020-09-12] MEDS ORDERED: Ondansetron 4 MG/2 ML VIAL IVP PRN (02:10)
[2020-09-12] MEDS ORDERED: D5% in Water 1,000 ML IVC PRN (05:29)
[2020-09-12] MEDS ORDERED: Dextrose Gel 15 GM/37.5 ML TUBE PO PRN ×2 (05:29)
[2020-09-12] MEDS ORDERED: *HR* Dextrose 50 % in Water (Vial) 50 ML VIAL IVP PRN (05:29)
[2020-09-12] MEDS ORDERED: *HR* Rivaroxaban 15 MG TABLET PO SCH (05:30)
[2020-09-12] MEDS ORDERED: Vancomycin 1,500 MG/265 ML IV.SOLN IVPB SCH (06:00)
[2020-09-12 06:20] LABS: Hematocrit 45.2 % (37.5-50.1); Mean Corpuscular HGB Conc 31.4 g/dL (31.6-35.5); Mean Corpuscular Hemoglobin 34.1 pg (28.0-33.3); Mean Corpuscular Volume 108.4 fL (83.0-100.0); Mean Platelet Volume 11.6 fL (9.4-12.4); Platelet Count 113 K/mcL (140-400); Red Blood Count 4.17 M/mcL (4.19-5.50); Red Cell Distribution Width 13.7 % (11.5-14.5); White Blood Count 8.4 K/mcL (4.3-11.1)
[2020-09-12 06:25] LABS: Hemoglobin 14.2 g/dL (12.9-16.9)
[2020-09-12] MEDS: Insulin LISPRO 300 UNITS/3 ML VIAL SQ SCH ×3 (06:33→17:15)
[2020-09-12 06:50] LABS: Magnesium 2.4 mg/dL (1.6-2.6); Phosphorous 5.4 mg/dL (2.7-4.5); Potassium 4.2 mEq/L (3.5-5.1); Troponin I 0.04 ng/mL (< 0.04)
[2020-09-12] MEDS: Piperacillin/Tazobactam 3.375 GM in 0.9 % Sodium Chloride Mini Bag 100 ML IVPB SCH ×2 (07:42→15:12)
[2020-09-12] MEDS ORDERED: D5% in Water 1,000 ML IVC SCH (10:45)
[2020-09-12] MEDS ORDERED: *HR* Heparin 5,000 UNIT/ML VIAL IVP PRN ×2 (13:18)
[2020-09-12] MEDS ORDERED: *HR* Heparin 5,000 UNIT/ML VIAL IVP ONE (13:18)
[2020-09-12 14:49] LABS: Hematocrit 45.9 % (37.5-50.1); Hemoglobin 14.4 g/dL (12.9-16.9); Mean Corpuscular HGB Conc 31.4 g/dL (31.6-35.5); Mean Corpuscular Hemoglobin 34.4 pg (28.0-33.3); Mean Corpuscular Volume 109.5 fL (83.0-100.0); Mean Platelet Volume 11.5 fL (9.4-12.4); Platelet Count 121 K/mcL (140-400); Red Blood Count 4.19 M/mcL (4.19-5.50); Red Cell Distribution Width 13.7 % (11.5-14.5); White Blood Count 9.9 K/mcL (4.3-11.1)
[2020-09-12 14:53] LABS: INR 1.7; Prothrombin Time 19.4 Seconds (9.4-12.1)
[2020-09-12] MEDS: Heparin 25,000UNIT/250ML 1/2NS 25,000 UNIT/250 ML IV.SOLN IVC SCH (15:14)
[2020-09-12] MEDS: D5% in Water 1,000 ML IVC SCH (19:06)
[2020-09-13] MEDS: Piperacillin/Tazobactam 3.375 GM in 0.9 % Sodium Chloride Mini Bag 100 ML IVPB SCH ×2 (00:29→10:07)
[2020-09-13] MEDS: Insulin LISPRO 300 UNITS/3 ML VIAL SQ SCH ×4 (00:31→16:18)
[2020-09-13] MEDS: D5% in Water 1,000 ML IVC SCH ×5 (02:26→23:02)
[2020-09-13] MEDS ORDERED: Vancomycin 1,250 MG/262.5 ML IV.SOLN IVPB SCH (06:00)
[2020-09-13 06:58] LABS: Hematocrit 48.2 % (37.5-50.1); Hemoglobin 14.6 g/dL (12.9-16.9); Mean Corpuscular HGB Conc 30.3 g/dL (31.6-35.5); Mean Corpuscular Hemoglobin 34.1 pg (28.0-33.3); Mean Corpuscular Volume 112.6 fL (83.0-100.0); Mean Platelet Volume 11.7 fL (9.4-12.4); Platelet Count 93 K/mcL (140-400); Red Blood Count 4.28 M/mcL (4.19-5.50); Red Cell Distribution Width 13.7 % (11.5-14.5); White Blood Count 9.4 K/mcL (4.3-11.1)
[2020-09-13 07:44] LABS: BUN/Creatinine Ratio 32 (6-26); Blood Urea Nitrogen 41 mg/dL (8-23); Calcium 8.9 mg/dL (8.6-10.3); Carbon Dioxide 25 mEq/L (23-29); Chloride 128 mEq/L (98-107); Glucose 206 mg/dL (70-105); Osmolality,Calculated 346 (280-300); Potassium 3.6 mEq/L (3.5-5.1); Sodium 160 mEq/L (136-145); eGFR For African Americans > 60 (> 60); eGFR For Non-African Americans 54 (> 60)
[2020-09-13 11:24] LABS: Bilirubin,Urine Negative (Negative); Blood,Urine Large (Negative); Clarity,Urine Ex.Turbid (Clear); Color,Urine Light-Orange (Yellow); Glucose,Urine (UA) >=1000 mg/dL (Normal); Ketones,Urine Negative (Negative); Leukocyte Esterase,Urine Trace (Negative); Nitrite,Urine Negative (Negative); PH,Urine 5.5 pH Units (5.0-8.0); Protein,Urine 50 mg/dL (Neg-Trace); Specific Gravity,Urine 1.029 (1.010-1.025); Urobilinogen,Urine Normal (Normal)
[2020-09-13 11:29] LABS: RBC,Urine TNTC per hpf (0-3); Uric Acid Crystals,Urine Present
[2020-09-13 11:30] LABS: Amorphous Sediment,Urine Few per hpf (None-Few); WBC,Urine 0-3 per hpf (0-3)
[2020-09-13] MEDS: *HR* Rivaroxaban 15 MG TABLET PO SCH ×2 (13:40→21:09)
[2020-09-13] MEDS: Carbidopa/Levodopa 25/100 TABLET PO SCH ×2 (16:15→21:08)
[2020-09-13 17:24] LABS: Thyroid Stimulating Hormone 0.855 mcIU/mL (0.340-5.600)
[2020-09-13] MEDS: Heparin 25,000UNIT/250ML 1/2NS 25,000 UNIT/250 ML IV.SOLN IVC SCH (17:32)
[2020-09-13] MEDS: Doxycycline 100 MG CAPSULE PO SCH (21:08)
[2020-09-13] MEDS: Venlafaxine XR (24 HR) 75 MG CAP.ER.24H PO SCH (21:09)
[2020-09-13] MEDS: ARIPiprazole 5 MG TABLET PO SCH (21:09)
[2020-09-14] MEDS: Insulin LISPRO 300 UNITS/3 ML VIAL SQ SCH ×5 (00:56→21:56)
[2020-09-14 04:09] LABS: Mean Corpuscular HGB Conc 31.6 g/dL (31.6-35.5); Mean Corpuscular Hemoglobin 34.2 pg (28.0-33.3)
[2020-09-14 04:11] LABS: Hematocrit 39.2 % (37.5-50.1); Hemoglobin 12.4 g/dL (12.9-16.9); Immature Platelets 7.3 % (1.1-6.1); Mean Platelet Volume 11.7 fL (9.4-12.4); Red Blood Count 3.63 M/mcL (4.19-5.50); Red Cell Distribution Width 13.5 % (11.5-14.5); White Blood Count 8.5 K/mcL (4.3-11.1)
[2020-09-14 04:28] LABS: BUN/Creatinine Ratio 25 (6-26); Blood Urea Nitrogen 32 mg/dL (8-23); Calcium 7.7 mg/dL (8.6-10.3); Carbon Dioxide 24 mEq/L (23-29); Chloride 121 mEq/L (98-107); Glucose 256 mg/dL (70-105); Osmolality,Calculated 330 (280-300); Phosphorous 2.1 mg/dL (2.7-4.5); Potassium 3.4 mEq/L (3.5-5.1); Sodium 152 mEq/L (136-145); eGFR For African Americans > 60 (> 60); eGFR For Non-African Americans 54 (> 60)
[2020-09-14] MEDS: D5% in Water 1,000 ML IVC SCH ×3 (05:47→16:23)
[2020-09-14] MEDS: Aspirin 81 MG TAB.CHEW PO SCH (07:53)
[2020-09-14] MEDS: Carbidopa/Levodopa 25/100 TABLET PO SCH ×3 (07:53→21:55)
[2020-09-14] MEDS: Doxycycline 100 MG CAPSULE PO SCH ×2 (07:54→21:53)
[2020-09-14] MEDS: Venlafaxine XR (24 HR) 75 MG CAP.ER.24H PO SCH ×2 (07:54→21:53)
[2020-09-14] MEDS: *HR* Rivaroxaban 15 MG TABLET PO SCH ×2 (07:54→21:54)
[2020-09-14] MEDS ORDERED: cefTRIAXone 1,000 MG in Water for inj. (sterile) 10 ML IVP SCH (09:00)
[2020-09-14] MEDS ORDERED: cefTRIAXone 1,000 MG in Water for inj. (sterile) 10 ML IVP ONE (09:00)
[2020-09-14] MEDS: ARIPiprazole 5 MG TABLET PO SCH (21:54)
[2020-09-15 03:58] LABS: Hemoglobin 11.1 g/dL (12.9-16.9); Red Cell Distribution Width 13.2 % (11.5-14.5)
[2020-09-15 04:00] LABS: Hematocrit 34.8 % (37.5-50.1); Immature Platelets 7.9 % (1.1-6.1); Mean Corpuscular HGB Conc 31.9 g/dL (31.6-35.5); Mean Corpuscular Hemoglobin 33.9 pg (28.0-33.3); Mean Corpuscular Volume 106.4 fL (83.0-100.0); Mean Platelet Volume 12.2 fL (9.4-12.4); Red Blood Count 3.27 M/mcL (4.19-5.50); White Blood Count 7.3 K/mcL (4.3-11.1)
[2020-09-15 04:18] LABS: BUN/Creatinine Ratio 21 (6-26); Blood Urea Nitrogen 22 mg/dL (8-23); Calcium 7.5 mg/dL (8.6-10.3); Carbon Dioxide 25 mEq/L (23-29); Chloride 116 mEq/L (98-107); Glucose 212 mg/dL (70-105); Osmolality,Calculated 310 (280-300); Potassium 3.6 mEq/L (3.5-5.1); Sodium 145 mEq/L (136-145); eGFR For African Americans > 60 (> 60); eGFR For Non-African Americans > 60 (> 60)
[2020-09-15] MEDS: *HR* Rivaroxaban 15 MG TABLET PO SCH ×2 (09:34→16:49)
[2020-09-15] MEDS: Aspirin 81 MG TAB.CHEW PO SCH (09:34)
[2020-09-15] MEDS: Carbidopa/Levodopa 25/100 TABLET PO SCH ×3 (09:34→21:19)
[2020-09-15] MEDS: Doxycycline 100 MG CAPSULE PO SCH ×2 (09:35→21:18)
[2020-09-15] MEDS: Venlafaxine XR (24 HR) 75 MG CAP.ER.24H PO SCH ×2 (09:35→21:18)
[2020-09-15] MEDS: cefTRIAXone 2,000 MG in Water for inj. (sterile) 20 ML IVP SCH (09:35)
[2020-09-15] MEDS: Insulin LISPRO 300 UNITS/3 ML VIAL SQ SCH ×4 (09:36→21:19)
[2020-09-15 13:19] LABS: Bilirubin,Urine Negative (Negative); Blood,Urine Small (Negative); Clarity,Urine Clear (Clear); Color,Urine Light-Yellow (Yellow); Glucose,Urine (UA) >=1000 mg/dL (Normal); Ketones,Urine Negative (Negative); Leukocyte Esterase,Urine Negative (Negative); Nitrite,Urine Negative (Negative); Protein,Urine Negative (Neg-Trace); Specific Gravity,Urine 1.023 (1.010-1.025); Urobilinogen,Urine Normal (Normal)
[2020-09-15] MEDS: Lithium Carbonate 300 MG CAPSULE PO SCH (21:17)
[2020-09-15] MEDS: ARIPiprazole 5 MG TABLET PO SCH (21:18)
[2020-09-16 04:26] LABS: Red Cell Distribution Width 13.2 % (11.5-14.5)
[2020-09-16 04:27] LABS: Hematocrit 32.5 % (37.5-50.1); Hemoglobin 10.5 g/dL (12.9-16.9); Immature Platelets 9.8 % (1.1-6.1); Mean Corpuscular HGB Conc 32.3 g/dL (31.6-35.5); Mean Corpuscular Volume 105.2 fL (83.0-100.0); Mean Platelet Volume 11.6 fL (9.4-12.4); Red Blood Count 3.09 M/mcL (4.19-5.50); White Blood Count 6.2 K/mcL (4.3-11.1)
[2020-09-16 04:35] LABS: BUN/Creatinine Ratio 17 (6-26); Blood Urea Nitrogen 14 mg/dL (8-23); Calcium 7.3 mg/dL (8.6-10.3); Carbon Dioxide 25 mEq/L (23-29); Chloride 110 mEq/L (98-107); Glucose 122 mg/dL (70-105); Osmolality,Calculated 292 (280-300); Potassium 3.8 mEq/L (3.5-5.1); Sodium 140 mEq/L (136-145); eGFR For African Americans > 60 (> 60); eGFR For Non-African Americans > 60 (> 60)
[2020-09-16] MEDS: Insulin LISPRO 300 UNITS/3 ML VIAL SQ SCH ×4 (11:09→22:13)
[2020-09-16] MEDS: cefTRIAXone 2,000 MG in Water for inj. (sterile) 20 ML IVP SCH (11:17)
[2020-09-16] MEDS: Doxycycline 100 MG CAPSULE PO SCH ×2 (11:18→22:14)
[2020-09-16] MEDS: Aspirin 81 MG TAB.CHEW PO SCH (11:18)
[2020-09-16] MEDS: Carbidopa/Levodopa 25/100 TABLET PO SCH ×3 (11:18→22:14)
[2020-09-16] MEDS: *HR* Rivaroxaban 15 MG TABLET PO SCH ×2 (11:18→17:19)
[2020-09-16] MEDS: Venlafaxine XR (24 HR) 75 MG CAP.ER.24H PO SCH ×2 (11:19→22:14)
[2020-09-16] MEDS: ARIPiprazole 5 MG TABLET PO SCH (22:14)
[2020-09-16] MEDS: Lithium Carbonate 300 MG CAPSULE PO SCH (22:14)
[2020-09-17] MEDS: Insulin LISPRO 300 UNITS/3 ML VIAL SQ SCH ×4 (09:49→22:12)
[2020-09-17] MEDS: Carbidopa/Levodopa 25/100 TABLET PO SCH ×3 (11:13→22:16)
[2020-09-17] MEDS: *HR* Rivaroxaban 15 MG TABLET PO SCH ×2 (11:14→18:57)
[2020-09-17] MEDS: Aspirin 81 MG TAB.CHEW PO SCH (11:14)
[2020-09-17] MEDS: Venlafaxine XR (24 HR) 75 MG CAP.ER.24H PO SCH ×2 (11:16→22:16)
[2020-09-17 17:44] LABS: BUN/Creatinine Ratio 18 (6-26); Blood Urea Nitrogen 12 mg/dL (8-23); Calcium 7.7 mg/dL (8.6-10.3); Carbon Dioxide 18 mEq/L (23-29); Chloride 108 mEq/L (98-107); Glucose 127 mg/dL (70-105); Osmolality,Calculated 285 (280-300); Sodium 137 mEq/L (136-145); eGFR For African Americans > 60 (> 60); eGFR For Non-African Americans > 60 (> 60)
[2020-09-17] MEDS: Doxycycline 100 MG CAPSULE PO SCH (19:32)
[2020-09-17] MEDS: cefTRIAXone 2,000 MG in Water for inj. (sterile) 20 ML IVP SCH (19:32)
[2020-09-17] MEDS: ARIPiprazole 5 MG TABLET PO SCH (22:15)
[2020-09-17] MEDS: Lithium Carbonate 300 MG CAPSULE PO SCH (22:16)
[2020-09-18 06:32] VITALS: BP 111/68
[2020-09-18] MEDS: Insulin LISPRO 300 UNITS/3 ML VIAL SQ SCH (09:12)
[2020-09-18] MEDS: Aspirin 81 MG TAB.CHEW PO SCH (09:14)
[2020-09-18] MEDS: Carbidopa/Levodopa 25/100 TABLET PO SCH (09:14)
[2020-09-18] MEDS: *HR* Rivaroxaban 15 MG TABLET PO SCH (09:14)
[2020-09-18] MEDS: Venlafaxine XR (24 HR) 75 MG CAP.ER.24H PO SCH (09:15)
[2020-09-29] MEDS ORDERED: *HR* Rivaroxaban 10 MG TABLET PO SCH ×2 (09:00→17:00)
== END 2020-09-18 10:45 | DRG 640 ==
LOC: 3ANU
PROVIDERS: ADMIT Internal Medicine; ATTEND Internal Medicine